=== PATIENT | female | born 1970 | race Caucasian/White ===

== ENCOUNTER → 2019-04-05 | Outpatient (CLI) | payer BC ==
--- NOTE | 2019-04-08 08:20 | MM ---
Reason for exam: screening (asymptomatic). Last mammogram was performed 3 years and 7 months ago. History: Patient is postmenopausal. Physical Findings: A clinical breast exam by your physician is recommended on an annual basis and results should be correlated with mammographic findings. MG Screening Mammo w CAD Bilateral CC and MLO view(s) were taken. Prior study comparison: September 09, 2015, mammogram, performed at [facility]. March 06, 2012, bilateral digital screening mammo w/CAD. September 24, 2007, bilateral digital screening mammogram. The breast tissue is heterogeneously dense. This may lower the sensitivity of mammography. There is no discrete abnormality. ASSESSMENT: Negative, BI-RAD 1 RECOMMENDATION: Routine screening mammogram of both breasts in 1 year.
== END | disposition home or self-care (01) ==
LOC: RADMAMWWP 09:22
PROVIDERS: ATTEND Family Medicine
DX: Z12.31 Encounter for screening mammogram for malignant neoplasm of breast (principal)
CPT/HCPCS: 77067

== ENCOUNTER → 2020-07-23 | Outpatient (CLI) | payer BC ==
--- NOTE | 2020-07-29 10:48 | MM ---
Reason for exam: screening (asymptomatic). Last mammogram was performed 1 year and 4 months ago. History: Patient is postmenopausal. Physical Findings: A clinical breast exam by your physician is recommended on an annual basis and results should be correlated with mammographic findings. MG Screening Mammo w CAD Bilateral CC and MLO view(s) were taken. Prior study comparison: April 05, 2019, bilateral MG screening mammo w CAD. September 09, 2015, mammogram, performed at [facility]. There are scattered fibroglandular densities. Developing asymmetry 9mm anteriorly left breast 3-4cm from nipple, slight outer aspect. ASSESSMENT: Incomplete: need additional imaging evaluation, BI-RAD 0 RECOMMENDATION: Special view mammogram and ultrasound of the left breast. [facility] will attempt to contact patient to return for supplemental views and ultrasound.
== END | disposition home or self-care (01) ==
LOC: RADMAMWWP 06:59
PROVIDERS: ATTEND Family Medicine
DX: Z12.31 Encounter for screening mammogram for malignant neoplasm of breast (principal)
CPT/HCPCS: 77067

== ENCOUNTER → 2020-08-13 | Outpatient (CLI) | payer BC ==
--- NOTE | 2020-08-14 10:14 | MM ---
Reason for exam: additional evaluation requested from abnormal screening. Last mammogram was performed 1 month ago. History: Patient is postmenopausal. Physical Findings: Nurse did not find any significant physical abnormalities on exam. MG Work Up Mamm w CAD LT Spot compression CC, spot compression MLO, and LM view(s) were taken of the left breast. Prior study comparison: July 23, 2020, bilateral MG screening mammo w CAD. April 05, 2019, bilateral MG screening mammo w CAD. There are scattered fibroglandular densities. Lobulated isodense mass 3 o'clock measures 1.2cm. Ultrasound recommended. These results were verbally communicated with the patient and result sheet given to the patient on 08/13/19. ASSESSMENT: Incomplete: need additional imaging evaluation, BI-RAD 0 RECOMMENDATION: Ultrasound of the left breast. (3 o'clock)
--- NOTE | 2020-08-14 10:16 | USB ---
Reason for exam: additional evaluation requested from abnormal screening. History: Patient is postmenopausal. US Breast Workup Limited LT Left limited breast ultrasound including focal area of concern, retroareolar and axilla demonstrates a 1.1 x 0.7 x 0.7cm mixed lesion at 3 o'clock, suspicious, biopsy recommended. These results were verbally communicated with the patient and result sheet given to the patient on 08/13/20. ASSESSMENT: Suspicious, BI-RAD 4 RECOMMENDATION: Ultrasound core biopsy of the left breast. Called Dr. Cyr's office with mammographic findings and has scheduled an appointment for the patient for 09/10/20 at 10:[address] Irwin. Biopsy scheduled for 09/10/20 at 1:00. PRELIMINARY REPORT CALLED AND FAXED TO DR. IRWIN ON 08/13/20.
== END | disposition home or self-care (01) ==
LOC: RADMAMWWP 13:58
PROVIDERS: ATTEND Family Medicine
DX: R92.8 Other abnormal and inconclusive findings on diagnostic imaging of breast (principal)
CPT/HCPCS: 77065

== ENCOUNTER → 2020-09-10 | Outpatient (CLI) | payer BC ==
[2020-09-10 09:47] VITALS: BP 120/78; PULSE 69; RESP 18; TEMP 98.3
--- NOTE | 2020-09-10 10:32 | P.GSHP ---
History of Present Illness H&P Date: 09/10/20 Chief Complaint: abnormal left breat ultrasound Santa is a 50 year old white female seen in consultation for Dr. Cyr regarding a 1.1 cm ultrasound abnormality in the left breast. She had a routine screening mammogram performed on [id number]. This was felt to be incomplete and is developing asymmetry in the left breast was noted. This was in the slightly outer aspect. Compression views were obtained on 120 121. This revealed lobulated isodense mass 3:00 which measured 1.2 cm. An ultrasound was recommended. An ultrasound was performed on the same day which confirmed a 1.1 x 0.7 cm mixed lesion at 3:00 which was considered suspicious and biopsy was recommended. The patient does not feel any lumps masses or nodules of concern in either breast. She is not complaining of any nipple discharge or skin changes. She is not complaining of any pain in her breast. She has not had any recent trauma or infection in the breast. She has never had any surgery in the breast. Caffeine: monster drink daily at work nicotine: none carlito-bromine: none hormones: none Family history: father: prostate cancer Hormonal History: menarche: 16 , breast fed: none, age at first : 18 menopause: partial hysterectomy for fibroid tumors, left 1 ovary, at age 40 BCP: none hormones: none Surgical history: Partial hysterectomy Cholecystectomy Medical history: none Social History: smoke: none alcohol: rare drugs: none - Constitutional Constitutional: Denies chills, Denies fever - EENT Eyes: denies blurred vision, denies pain Ears: deny: decreased hearing, tinnitus Ears, nose, mouth and throat: Denies headache, Denies sore throat - Breasts Breasts: bilateral: as per HPI - Cardiovascular Cardiovascular: Denies chest pain, Denies shortness of breath - Respiratory Respiratory: Denies cough, Denies 7 - Gastrointestinal Gastrointestinal: Denies abdominal pain, Denies diarrhea, Denies nausea, Denies vomiting - Genitourinary (Female) Genitourinary: Denies dysuria, Denies hematuria - Menstruation Menstruation: Reports post hysterectomy - Musculoskeletal Musculoskeletal: Denies myalgias - Integumentary Integumentary: Denies pruritus, Denies rash - Neurological Neurological: Denies numbness, Denies weakness - Psychiatric Psychiatric: Denies anxiety, Denies depression - Endocrine Endocrine: Denies fatigue, Denies weight change - Hematologic/Lymphatic Comment: none - Allergic/Immunologic Allergic/Immunologic: Reports seasonal allergies Past Medical History Past Medical History: No Reported History History of Any Multi-Drug Resistant Organisms: None Reported Past Surgical History: Cholecystectomy, Hysterectomy Past Anesthesia/Blood Transfusion Reactions: No Reported Reaction Past Psychological History: No Psychological Hx Reported Smoking Status: Never smoker - Past Family History Father Additional Family Medical History / Comment(s): pace maker Medications and Allergies Home Medications Medication Instructions Recorded Confirmed Type Cetirizine HCl [Zyrtec] 10 mg PO DAILY 09/03/20 09/10/20 History Ergocalciferol (Vitamin D2) 50 mcg PO DAILY 09/10/20 09/10/20 History [Vitamin D2 (2000 Iu)] Allergies Allergy/AdvReac Type Severity Reaction Status Date / Time No Known Allergies Allergy Verified 09/10/20 09:44 Surgical - Exam Vital Signs Temp Pulse Resp BP Pulse Ox 98.3 F 69 18 120/78 97 09/10/20 09:44 09/10/20 09:44 09/10/20 09:44 09/10/20 09:44 09/10/20 09:44 BMI 37.8 - General well developed, no distress - Eyes normal ocular movement - ENT normal pinna, normal nares, no hearing loss - Neck no masses, trachea midline, no lymphadectomy - Respiratory normal expansion, normal respiratory effort, clear to auscultation - Cardiovascular Rhythm: regular Heart Sounds: normal: S1, S2 - Abdomen Abdomen: soft, bowel sounds - Integumentary normal turgor - Neurologic no disoriented, no combative - Musculoskeletal normal gait - Psychiatric oriented to time, oriented to person, oriented to place, speech is normal, memory intact breast exam: BRA: extra large sports bra inspection: Bilateral grade 3 ptosis Palpation: Right breast: Multi-positional exam fibrocystic changes, no dominant masses or nodules of concern Right axilla: No adenopathy of concern left breast: Multiple positional exam fibrocystic changes, no dominant masses or nodules of concern Left axilla: No adenopathy of concern Results Mammogram and ultrasound results reviewed Assessment and Plan Assessment: Impression: 1. Radiographic abnormality left breast on ultrasound and mammogram 2. Fibrocystic breast changes 3. Family history father prostate cancer 4. No radiographic abnormalities of concern in the right breast 5. Patient most likely perimenopausal Plan: 1. Ultrasound-guided core biopsy right breast 2. Follow-up after ultrasound core biopsy results Risks and benefits of procedure discussed with the patient. She understands and wishes to proceed. Risks include but are not limited to bleeding, infection, reaction to the anesthetic. If this were to be discordant it could be recommended a repeat biopsy removal in the operating room be performed. She understands this and wishes to proceed. Cc: Dr. Cyr Encounter 25 minutes time spent in reviewing medical records, physical examination, and counseling.
== END | disposition home or self-care (01) ==
LOC: WWCWWP 09:28
PROVIDERS: ATTEND Surgery
DX: R92.8 Other abnormal and inconclusive findings on diagnostic imaging of breast (principal); N60.12 Diffuse cystic mastopathy of left breast; Z80.42 Family history of malignant neoplasm of prostate

== ENCOUNTER → 2020-09-10 | Day surgery (SDC) | payer BC ==
[2020-09-10 12:04] VITALS: BP 114/74; PULSE 78; RESP 16; TEMP 98.5
--- NOTE | 2020-09-10 17:34 | USB ---
EXAMINATION TYPE: US biopsy breast VAD LT, MG post biopsy diagnostic mammo LT wo CAD DATE OF EXAM: 09/10/2020 CLINICAL HISTORY: 50-year-old female R92.8 ABN MAMMO. TECHNIQUE: Ultrasound guided core biopsy of the 3:00 left breast. COMPARISON: 08/13/2020 FINDINGS: The procedure of ultrasound guided core biopsy was explained to the patient. Benefits, alternatives, and risks were discussed. An informed consent was then obtained. The complex cyst versus cyst cluster measuring 1.1 cm is identified at the 3:00 position of the left breast and targeted for biopsy. The patient was placed in supine positioning for imaging and for the procedure. The overlying skin was prepped and draped in usual sterile fashion. Lidocaine was used as anesthetic into the skin and subcutaneous tissue up to area of concern in the 3:00 left breast. Under ultrasound guidance, a 13-gauge vacuum-assisted mammotome Elite biopsy gun was used to obtain 3 core samples. Most of the lesion collapsed with the passes and the majority of the lesion was removed with the samples. Following this, a coil clip was left at the site of biopsy. The patient tolerated the procedure well without any immediate complication. The patient was kept in the radiology department for short stay after the procedure and then discharged home in stable condition. Postprocedure mammogram shows the coil clip centrally and anteriorly at the 3:00 position and the mammographic mass has resolved. IMPRESSION: Successful, uncomplicated ultrasound guided core biopsy of area of concern in the 3:00 left breast, suspected cyst cluster and confirmed mammographic correlate; full pathology results to follow. Pathology Results: Benign LEFT BREAST, NEEDLE CORE BIOPSY: Fibrocystic change with apocrine metaplasia. Negative for in situ or invasive carcinoma. Recommendation Follow up mammogram of the left breast in 6 months. JAMAAL
== END ==
LOC: RADUSWWP 11:50
PROVIDERS: ATTEND Surgery
DX: N60.12 Diffuse cystic mastopathy of left breast (principal); N60.82 Other benign mammary dysplasias of left breast
CPT/HCPCS: 88305; 77065; 19083; A4648; J2001

== ENCOUNTER → 2020-09-17 | Outpatient (CLI) | payer BC ==
[2020-09-17 11:09] VITALS: BP 117/74; PULSE 84; RESP 18; TEMP 98.3
--- NOTE | 2020-09-17 11:37 | P.PN ---
Subjective Progress Note Date: 09/17/20 Principal diagnosis: fibrocystic breast changes Santa is a 50 year old white female seen in consultation for Dr. Cyr regarding a 1.1 cm ultrasound abnormality in the left breast. She had a routine screening mammogram performed on [id number]. This was felt to be incomplete and is developing asymmetry in the left breast was noted. This was in the slightly outer aspect. Compression views were obtained on 120 121. This revealed lobulated isodense mass 3:00 which measured 1.2 cm. An ultrasound was recommended. An ultrasound was performed on the same day which confirmed a 1.1 x 0.7 cm mixed lesion at 3:00 which was considered suspicious and biopsy was recommended. The patient does not feel any lumps masses or nodules of concern in either breast. She is not complaining of any nipple discharge or skin changes. She is not complaining of any pain in her breast. She has not had any recent trauma or infection in the breast. She has never had any surgery in the breast. She had a core biopsy done on 09-10-20 of the area of concern in the left breast. These x-rays were reviewed with the radiologist and felt to be concordant. The pathology was fibrocystic change with apocrine metaplasia. Negative for in situ or invasive cancer. She had no complications related to the biopsy. Caffeine: monster drink daily at work nicotine: none carlito-bromine: none hormones: none Family history: father: prostate cancer Hormonal History: menarche: 16 , breast fed: none, age at first : 18 menopause: partial hysterectomy for fibroid tumors, left 1 ovary, at age 40 BCP: none hormones: none Surgical history: Partial hysterectomy Cholecystectomy Medical history: none Social History: smoke: none alcohol: rare drugs: none - Constitutional Constitutional: Denies chills, Denies fever - EENT Eyes: denies blurred vision, denies pain Ears: deny: decreased hearing, tinnitus Ears, nose, mouth and throat: Denies headache, Denies sore throat - Breasts Breasts: bilateral: as per HPI - Cardiovascular Cardiovascular: Denies chest pain, Denies shortness of breath - Respiratory Respiratory: Denies cough - Gastrointestinal Gastrointestinal: Denies abdominal pain, Denies diarrhea, Denies nausea, Denies vomiting - Genitourinary (Female) Genitourinary: Denies dysuria, Denies hematuria - Menstruation Menstruation: Reports post hysterectomy - Musculoskeletal Musculoskeletal: Denies myalgias - Integumentary Integumentary: Denies pruritus, Denies rash - Neurological Neurological: Denies numbness, Denies weakness - Psychiatric Psychiatric: Denies anxiety, Denies depression - Endocrine Endocrine: Denies fatigue, Denies weight change - Hematologic/Lymphatic Comment: none - Allergic/Immunologic Allergic/Immunologic: Reports seasonal allergies Objective - Vital Signs Vital signs: Vital Signs Temp 98.3 F 09/17/20 11:07 Pulse 84 09/17/20 11:07 Resp 18 09/17/20 11:07 BP 117/74 09/17/20 11:07 Pulse Ox 98 09/17/20 11:07 Intake & Output 09/16/20 09/17/20 09/17/20 18:59 06:59 18:59 Weight 106.141 kg - Exam BMi 37.8 - Constitutional General appearance: Present: obese - EENT Eyes: Present: EOMI ENT: Present: hearing grossly normal - Neck Neck: Present: normal ROM - Respiratory Respiratory: bilateral: CTA - Cardiovascular Rhythm: regular Heart sounds: normal: S1, S2 - Musculoskeletal Musculoskeletal: Present: gait normal - Psychiatric Psychiatric: Present: A&O x's 3, appropriate affect - Additional findings Additional findings: Breast examination: Left breast: Biopsy site clean and dry, mild ecchymosis, no infection or hematoma Assessment and Plan Assessment: Impression: Fibrocystic breast changes Recent core biopsy left breast benign fibrocystic changes, this was reviewed with radiology and felt to be benign and concordant Patient has had recent 20 pound weight loss, she is continuing to watch her lifestyle and lose weight with discussed that higher BMI baby related with increased estrogen levels in the broad which can cause changes in the breast Plan: 1. Patient encouraged to stop caffeine 2. Patient encouraged to continue to lose weight 3. Repeat left breast mammogram in 6 months with physician exam at that time Cc: Dr. Cyr encounter 15 minutes, time spent in reviewing medical records, reviewing x-ray with radiology, physical examination, and counseling.
== END | disposition home or self-care (01) ==
LOC: WWCWWP 11:01
PROVIDERS: ATTEND Surgery
DX: N60.12 Diffuse cystic mastopathy of left breast (principal); R63.4 Abnormal weight loss

== ENCOUNTER → 2021-10-07 | Outpatient (CLI) | payer BC ==
--- NOTE | 2021-10-07 11:42 | MM ---
Reason for exam: additional evaluation requested from prior study. Last mammogram was performed 1 year and 1 month ago. History: Patient is postmenopausal. Benign US biopsy breast VAD LT of the left breast, September 10, 2020. Physical Findings: A clinical breast exam by your physician is recommended on an annual basis and results should be correlated with mammographic findings. MG Diagnostic Mammo w CAD JENIFER Bilateral CC and MLO view(s) were taken. Prior study comparison: September 10, 2020, left breast MG diagnostic mammo LT wo CAD. August 13, 2020, left breast MG work up mamm w CAD LT. There are scattered fibroglandular densities. There is no discrete abnormality. No significant new findings when compared with previous films. These results were verbally communicated with the patient and result sheet given to the patient on 10/07/21. ASSESSMENT: Negative, BI-RAD 1 RECOMMENDATION: Routine screening mammogram of both breasts in 1 year.
== END | disposition home or self-care (01) ==
LOC: RADMAMWWP 11:01
PROVIDERS: ATTEND Family Medicine
DX: N60.12 Diffuse cystic mastopathy of left breast (principal); Z78.0 Asymptomatic menopausal state
CPT/HCPCS: 77066

== ENCOUNTER → 2024-06-06 | Outpatient (CLI) | payer BC ==
--- NOTE | 2024-06-09 14:32 | MM ---
Reason for Exam: Screening (asymptomatic). Last mammogram was performed 2 year(s) and 8 month(s) ago. Patient History: Menarche at age 13. First Full-Term at age 19. Hysterectomy at age 40. Postmenopausal. 09/10/2020, Benign Core Biopsy on the left side. Risk Values: Lani 5 year model risk: 0.9%. NCI Lifetime model risk: 7.3%. Prior Study Comparison: 08/13/2020 Left Diagnostic Mammogram, [facility]. 09/10/2020 Left Diagnostic Mammogram, [facility]. 10/07/2021 Bilateral Diagnostic Mammogram, [facility]. Tissue Density: There are scattered areas of fibroglandular density. Findings: Analyzed By CAD. The pattern is symmetrical. No significant interval change. Core marker is within the left breast. No suspicious groups of microcalcifications, spiculated or lobular masses, architectural distortion or other secondary signs of malignancy are mammographically apparent. Overall Assessment: Benign, BI-RAD 2 Management: Screening Mammogram of both breasts in 1 year. A negative mammogram report should not preclude additional follow up of suspicious palpable abnormalities. Patient should continue monthly self breast exam. A clinical breast exam by your physician is recommended on an annual basis and results should be correlated with mammographic findings. Note on Lani scores and lifetime risk: 1. A Lani score greater than 3% is considered moderate risk. If this is the case, consider specialist referral to assess eligibility for a risk reducing agent. 2. If overall lifetime risk for the development of breast cancer is 20% or higher, the patient may qualify for future screening with alternating mammogram and breast MRI. [facility], , 06/09/2024 2:28 PM. Electronically signed and approved by: Travis Huynh D.O. Radiologis
== END | disposition home or self-care (01) ==
LOC: RADMAMWWP 08:43
PROVIDERS: ATTEND Family Medicine
DX: Z12.31 Encounter for screening mammogram for malignant neoplasm of breast (principal); Z78.0 Asymptomatic menopausal state; R92.323 Mammographic fibroglandular density, bilateral breasts
CPT/HCPCS: 77067